=== PATIENT | female | born 1935 | race Caucasian/White ===

== ENCOUNTER 2023-08-16 11:09 | Emergency (ER) | payer OTHER, SELFPAY ==
[2023-08-16 11:10] VITALS: BP 152/79
--- NOTE | 2023-08-16 11:43 | ED.GENMED ---
History of Present Illness
General
Chief Complaint: Fatigue
Source: patient and spouse
Exam Limitations: none
Time Seen by Provider: 08/16/23 11:28
Nursing documentation reviewed up to this point in time: agreed with
Travel History
Have you had any contact with someone who has COVID-19?: No
Do you have any symptoms of coronavirus? Fever > 100 degrees, chills, cough, shortness of breath, sore throat, loss of taste or smell, muscle aches, or headache?: No
History of Present Illness
History of Present Illness:
87-year-old female with history as documented presents to the emergency room for evaluation of fatigue. Patient reports that she has had increasing fatigue and generalized weakness over the past week or so�she says she first seem to notice it when
she was working in the garden a week ago he says that she had a minor fall onto her bottom and was too weak to stand up. She did not hit her head or sustain any serious injuries. She says she has been much more tired than usual and has
been sleeping more. She says she has had some increased shortness of breath. She has not had any infectious symptoms such as cough, runny nose, sore throat, nausea/vomiting/diarrhea. She has not had any dysuria, hematuria, change in urinary
frequency. She denies any chest or abdominal pain. She denies any back or flank pain. She has not had any headache or neck pain. She has not noticed any blood in her stools. She does report that she wishes to be tested for Lyme disease as she
says she works in the garden and has many cats and although she does not recall any specific tick bites she has taken ticks off of her in the past.
Past History
Past History
ED Past Medical History: GERD and Other (Diverticulitis)
ED Past Surgical History: Cholecystectomy
Social History
Tobacco: Non-smoker
Personal:
Living: with family
Employment: Retired
Review of Systems
Review of Systems
All Other Systems: ROS reviewed and negative except as documented in HPI and ROS
Constitutional: Reports fatigue; Denies fever or chills
EENT: Denies sore throat or runny nose
Respiratory: Reports trouble breathing; Denies cough
Cardiac: Denies chest pain or palpitations
ABD/GI: Denies abdominal pain, nausea, vomiting, diarrhea, bloody stools or black stools
: Denies dysuria, frequency or flank pain
Musculoskeletal: Denies neck pain or back pain
Neurological: Denies headache, weakness or numbness
Phy Exam
Physical Exam
Physical Exam:
General: Awake, alert, oriented x3; no acute distress
Head: Normocephalic, atraumatic
Eyes: Conjunctiva normal, EOMI, pupils equal round and reactive to light bilaterally
Throat: Airway intact, handling secretions
Neck: Trachea midline, supple without meningismus, no cervical spine tenderness
Back: No signs of trauma to the back or flank, no tenderness in thoracic or lumbar spine
Lungs: Clear to auscultation bilaterally, no wheezing, rales, rhonchi
Heart: Regular rate and rhythm, no murmurs, gallops, or rubs
Abd: Soft, non distended, nontender
Neuro: Cranial nerves grossly intact, speech fluid
Skin: Somewhat pale, no rash
Extremities: No edema in extremities, equal pulses in all extremities
Scores
Heart Failure Risk
Heart Failure Risk Score: Not Applicable
Heart Score for Chest Pain Patients
STEMI patient?: Not applicable
Withdrawal Assessment of Alcohol
Withdrawal Assessment Completed?: Not applicable
Course
Orders/Labs/Results
Orders:
Orders
08/16/23 11:30
Electrocardiogram (*1) Urgent
Reason for Study: Fatigue / Weakness
EKG- Treatment ONCE
08/16/23 11:48
CR Chest - 2 Views Urgent
Comment:
Reason For Exam: weakness, sob
08/16/23 12:03
COVID-19 Antigen Urgent
Source: Nasal Swab
Complete Blood Count/With Diff Urgent
Comprehensive Metabolic Panel Urgent
Lyme PCR, DNA [S] Urgent
Urinalysis Reflex To Culture Urgent
Date Specimen was Collected: 08/16/23
Time Specimen was Collected: 11:42
Influenza A+B Rapid Molecular Urgent
ADELITA Source: Nasal Swab
Specimen Description:
08/16/23 13:20
Case Management Consult ONCE
Case Management Consult: Discharge Planning
Pt Eval And Treat Urgent
Activity Level: Ambulate
Abnormal Lab Results
08/16/23
12:03
RBC 3.59 L 10^6/uL
(4.20-5.40)
Hgb 11.2 L g/dL
(12.0-16.0)
Hct 33.7 L %
(37.0-47.0)
MCH 31.2 H pg
(27.0-31.0)
Absolute Monos (auto) 0.7 H 10^3/uL
(0.1-0.6)
Monocytes % 9.9 H %
(1.7-9.3)
Glucose 110 H mg/dl
(70-99)
08/16/23 12:03
08/16/23 12:03
Vital Signs
Initial and Last Documented VS:
Initial Vital Signs
Temp Pulse Resp BP Pulse Ox
37.0 C 73 20 152/79 95
08/16/23 11:10 08/16/23 11:10 08/16/23 11:10 08/16/23 11:10 08/16/23 11:10
Last Documented Vital Signs
Temp Pulse Resp BP Pulse Ox
37.0 C 66 12 129/92 96
08/16/23 11:10 08/16/23 12:30 08/16/23 12:30 08/16/23 13:42 08/16/23 13:43
MDM/Problems Addressed
Differential Diagnosis Includes:
Anemia, electrolyte derangement, dehydration, infection including UTI or pneumonia, deconditioning, dysrhythmia, Lyme's disease
MDM/Problems Addressed:
87-year-old female presents for evaluation of progressive fatigue and generalized weakness over the past week plus. No other specific signs or symptoms reported. She is hypertensive but otherwise normal vitals. Physical exam as above. Plan to
place an IV check labs including a CBC and a CMP; will check urinalysis, chest x-ray, viral swabs for basic infectious workup. Check Lyme's test. Will check an EKG. Will monitor closely reassess after the above.
Labs reviewed: CBC shows anemia to 11.2 which is stable for the patient. CMP shows no electrolyte derangements or other acute abnormalities. Urinalysis is negative for infection. Viral swabs have been negative. Chest x-ray shows no pneumonia on
my independent review. Patient's vitals have been stable. Given her report of significant weakness we will have physical therapy assess patient prior to disposition�there is no clear medical indication for admission but concerned about her
functional status given recent fall.
Patient evaluated by physical therapy recommended home therapy as needed. Case management evaluated patient but they declined physical therapy. Had a long discussion with the patient�no clearly identifiable cause for her generalized weakness and
fatigue. seems to think that this could be long COVID as they both had COVID in the past and he has had similar severe fatigue. Lyme studies are pending. I offered admission but patient and feel comfortable going home at this
point in time they will follow-up with her primary doctor next week and will reassess need for therapy or further testing. I think this is a reasonable plan. We spoke about return precautions and all questions were answered.
Acute Exacerbation and/or Progression of Chronic Illness:
Acutely hypertensive with no signs or symptoms of hypertensive emergency�no indication for emergent antihypertensive treatment at present
Acute Exacerbation and/or Progression of Chronic Illness: HTN
*Radiology
Radiology exam reviewed: radiology read reviewed
*Pulse Oximetry
Patient hypoxic: no
*EKG
Interpreted by ED Provider?: Yes
Heart Rate: 65
Rate: normal
Rhythm: sinus
[employer]: left axis deviation
Interval: normal interval
QRS Pattern: normal QRS
Ischemia: no ischemia
*Critical Care Note
Total Time (30-74mins, 75-104mins- exclusive of procedures): Not Applicable
Data Reviewed
Review of Other/Old Records Reveals: Labs and Records
Source: patient, records and spouse
Patient Management
Social determinants of health affecting care: Living situation and Strong social support
Discussion with other providers: Other (Discussed with physical therapy, case assembler)
Escalation/DeEscalation of care consider admission/obs:
Offered admission�patient and prefer discharge with PCP follow-up
ED Attending Note
-
Portions of this chart may have been created with voice recognition software.� Occasional wrong word or��sound alike� substitutions may have occurred due to the inherent limitations of voice recognition software.
Discharge Plan
Departure
Patient Disposition: Home (Routine Discharge)
Date of Disposition: 08/16/23
Time of Disposition: 14:51
Patient with high blood pressure during this ER visit?: Yes
Discharge Problem:
Generalized weakness
Instructions: Generalized Weakness (DC)
Prescriptions:
No Action
rabeprazole [AcipHex] 20 MG tablet,delayed release (DR/EC)
20 mg PO DAILY
Myrbetriq 50 MG tablet extended release 24 hr
50 mg PO DAILY
therapeutic multivitamin Tablet
1 tab PO DAILY
bismuth subsalicylate [Pepto-Bismol] 262 mg Tablet,Chewable
2 tab PO Q4HPRN PRN (Reason: gerd)
Laxative (bisacodyl) 5 mg Tablet
5 mg PO HSPRN PRN (Reason: constipation)
duloxetine [Cymbalta] 30 mg Capsule,Delayed Release(Dr/Ec)
30 mg PO QPM
solifenacin [Vesicare] 5 mg Tablet
5 mg PO DAILY
Hair, Skin and Nails Advanced 3.3 mg iron-25 mcg Tablet
1 tab PO DAILY
docusate sodium 100 MG capsule
100 mg PO HS
pantoprazole [Protonix] [address] for susp in packet
40 mg PO DAILY Qty: 30 0RF
Referrals:
Macho Howe MD [Family Provider] - Follow up in 2-3 days
Activity Restrictions/Additional Instructions:
Thank you for visiting the Emergency Department at [facility].
1. Please schedule a follow up appointment as directed. Call first thing tomorrow morning to make an appointment.
2. If indicated, please take your medications as instructed and indicated on discharge paperwork.
3. If any of your symptoms do not improve, or persist, or become more severe within 6-12 hours, please return to the emergency department for further care.
4. Please return to the emergency department if you develop a headache, neck pain/stiffness, fever greater than 100.4F, chest pain, shortness of breath, persistent nausea, vomiting, slurred speech, difficulty walking, numbness/tingling, weakness,
signs of infection or any other symptoms that are worrisome to you.
Please call [phone] if you have any questions.
Interventions
Interventions:
*Risk Screen - Suicide Last Done: 08/16/23 11:10
*General Assessment Last Done: 08/16/23 11:10
*Neglect/Abuse Screening Last Done: 08/16/23 11:10
ED- Fall Risk Assessment Last Done: 08/16/23 12:22
*ED COVID-19 Vaccine History Last Done: 08/16/23 11:46
Discharge Date and Time
Print Language: PORTUGUESE
[2023-08-16 11:46] VITALS: BMI 28.7
[2023-08-16 12:20] VITALS: BP 98/55
[2023-08-16 12:28] LABS: % Basophils 0.4 % (0-2); % Eosinophils 2.1 % (0-6); % Immature Granulocytes 0.3 % (0-0.5); % Lymphocytes 35.9 % (20.5-51.1); % Monocytes 9.9 % (1.7-9.3); % Neutrophils 51.4 % (42.2-75.2); Absolute Eosinophils 0.2 10^3/uL (0-0.7); Absolute Lymphocytes 2.5 10^3/uL (1.2-3.4); Absolute Monocytes 0.7 10^3/uL (0.1-0.6); Absolute Neutrophils 3.6 10^3/uL (1.4-6.5); Hematocrit 33.7 % (37.0-47.0); Hemoglobin 11.2 g/dL (12.0-16.0); Mean Corp Hgb Conc. 33.2 g/dL (33.0-37.0); Mean Corpuscular Hgb 31.2 pg (27.0-31.0); Mean Corpuscular Volume 93.9 fL (81.0-99.0); Mean Platelet Volume 9.9 fL (7.4-10.4); Nucleated Red Blood Cells % 0 %; Platelet Count 222 10^3/uL (130-400); Red Blood Cell Count 3.59 10^6/uL (4.20-5.40); Red Cell Dist. Width 12.7 % (11.5-14.5); White Blood Cell Count 7.1 10^3/uL (4.8-10.8)
[2023-08-16 12:45] LABS: ALT (SGPT) 18 U/L (0-35); AST (SGOT) 30 U/L (14-36); Albumin 3.9 g/dl (3.5-5.0); Alkaline Phosphatase 66 U/L (38-126); Blood Urea Nitrogen 14 mg/dl (7-17); Calcium 9.5 mg/dl (8.4-10.2); Carbon Dioxide 29 mmol/L (22-30); Chloride 107 mmol/L (98-107); Estimated Creatinine Clearance 42 ml/min; Glucose 110 mg/dl (70-99); Potassium 4.2 mmol/L (3.5-5.1); Sodium 141 mmol/L (135-145); Total Bilirubin 0.7 mg/dl (0.2-1.3); Total Protein 6.5 g/dl (6.3-8.2); eGFR > 60.00
[2023-08-16 12:52] LABS: COVID-19 Antigen Negative (Negative)
[2023-08-16 12:56] LABS: Urine Albumin Negative (Neg - Trace); Urine Bilirubin Negative (Negative); Urine Character Clear (Clear); Urine Color Yellow; Urine Glucose Negative (Negative); Urine Ketone Negative (Negative); Urine Leukocyte Negative (Negative); Urine Nitrite Negative (Negative); Urine Occult Blood Negative (Negative); Urine Specific Gravity 1.015 (<1.030); Urine Urobilinogen Negative (Neg - 1+)
[2023-08-16 13:42] VITALS: BP 129/92
[2023-08-16 13:50] VITALS: BP 126/91
[2023-08-16 14:00] VITALS: BP 126/105
[2023-08-16 14:06] VITALS: BP 129/92; O2SAT 97
--- NOTE | 2023-08-16 14:28 | CM ---
Patient seen bedside with , initial assessment completed. Patient resides with her spouse in a two story home, elevator in the home. Patient does not use DME, does not have any SNF history. Patient reports history with [facility] VN. Patient
confirms PCP Macho Hwoe, pharmacy [facility], confirms prescription coverage. Patient reports she has been feeling very fatigued which is not like her. CM discussed referral for VN services, patient declining at this time. Patient reports she
knows the exercises for therapy and is able to ambulate independently but has just been feeling fatigued. CM explained to patient and that if patient discharges from Hospital and wishes to have VN services, patient can contact PCP. Patient
and in agreement with this and at this time would like to hold off on VN referral. Patients inquiring about blood work results. CM updated patients nurse. CM will continue to follow for discharge planning needs.
Plan; home no needs, patient declining VN at this time.
[2023-08-18 08:30] LABS: Lyme Disease DNA by PCR Not Detected; Lyme Source Serum
== END 2023-08-16 15:12 | disposition home or self-care (01) ==
LOC: EMR 11:09
PROVIDERS: EMERGENCY PHYSICIAN Emergency Medicine; FAMILY PHYSICIAN Family Medicine
DX: R53.1 Weakness (principal); R53.83 Other fatigue; R06.02 Shortness of breath; W19.XXXA Unspecified fall, initial encounter; Z11.52 Encounter for screening for COVID-19; R03.0 Elevated blood-pressure reading, without diagnosis of hypertension; K21.9 Gastro-esophageal reflux disease without esophagitis; K57.92 Diverticulitis of intestine, part unspecified, without perforation or abscess without bleeding; G62.9 Polyneuropathy, unspecified; K57.90 Diverticulosis of intestine, part unspecified, without perforation or abscess without bleeding; M19.90 Unspecified osteoarthritis, unspecified site; D64.9 Anemia, unspecified; Z90.49 Acquired absence of other specified parts of digestive tract; Z96.651 Presence of right artificial knee joint
CPT/HCPCS: 99283; 71046; 80053; 81003; 85025; 87476; 87502; 87811; 93005

== ENCOUNTER → 2023-10-02 12:01 | Outpatient (REF) | payer OTHER, SELFPAY | LOC: RAD 12:01 | PROVIDERS: ATTENDING PHYSICIAN Family Medicine | DX: M79.672 Pain in left foot (principal); M25.572 Pain in left ankle and joints of left foot | CPT/HCPCS: 73610; 73630 ==

== ENCOUNTER → 2023-10-12 11:47 | Emergency (ER) | payer OTHER, SELFPAY ==
[2023-10-12 11:51] VITALS: BP 166/86
--- NOTE | 2023-10-12 12:02 | ED.GENMED ---
History of Present Illness
General
Chief Complaint: Headache
Time Seen by Provider: 10/12/23 12:02
History of Present Illness
History of Present Illness:
HPI: The patient presents with a headache. The location of the pain is primarily in the back of the head down the right side of the head and to the back of the right ear. She has no temporal pain. She reports some pain with moving the right upper
extremity but denies any true weakness.
EXAM:
GENERAL: Well appearing but appears somewhat uncomfortable
HEENT: Moist oral mucosa
CARDIOVASCULAR: No murmurs, normal heart rate, regular rhythm, No chest wall tenderness
PULMONARY: No respiratory distress, breath sounds are clear and equal
ABDOMEN: Soft with no peritoneal signs, no tenderness
NEUROLOGIC: Excellent strength all extremities, no coordination deficits
PSYCHIATRIC: Appropriate mental status, normal insight and judgement
EXTREMITIES: Nontender, no edema, she has decreased active range of motion at the right shoulder due to pain
SKIN: No rash, no lesions, I see no evidence of shingles on physical examination of the scalp
TIME OF INITIAL ENCOUNTER: 12:30 PM
NUMBER AND COMPLEXITY OF PROBLEMS ADDRESSED AT THE ENCOUNTER
� Chronic conditions affecting care: Diverticular disease, GERD, hiatal hernia, has had shingles, anxiety
� Acute Exacerbation and/or Progression of Chronic Illness: This is an acute problem
� Differential Diagnosis includes: Tension headache, hypertensive headache, temporal arteritis very unlikely given the location of the symptoms
AMOUNT AND/OR COMPLEXITY OF DATA TO BE REVIEWED AND ANALYZED
� I performed an independent evaluation of and my interpretation is:
EKG:
CT: CT of the brain personally reviewed which shows no acute abnormality
X-rays:
Laboratory Studies: Sed rate 15, CBC unremarkable
Other:
� Review of other/old records: The patient was admitted here in July 2022 with dyspepsia likely related to a large paraesophageal hiatal hernia (at that time she was heme positive stool had upper endoscopy which was unrevealing
and was discharged on Protonix)
� Clinical information was obtained by an independent historian: None needed
� Prescriptions/Medications Considered but not given:
� Further testing considered but not performed:
RISK OF COMPLICATIONS AND/OR MORBIDITY OR MORTALITY OF PATIENT MANAGEMENT
� Social determinants of health affecting care: Lives at home.
� Discussion with other providers:
� Escalation of care including admission/observation vs risk of discharge considered: Given patient's age, sed rate was obtained which was normal. Therefore extremely low suspicion for temporal arteritis. Tylenol 1000 mg was
given for pain; of note she did have Tylenol 500 mg earlier today. On reassessment at 1:35 PM, pain persist but overall appears somewhat improved. Will add Lyme testing as patient did voice some concern [place]
Past History
Past History
ED Past Medical History: GERD and Other (Diverticulitis)
ED Past Surgical History: Cholecystectomy
Social History
Tobacco: Non-smoker
Personal:
Living: with family
Employment: Retired
Phy Exam
Physical Exam
Physical Exam:
See HPI
Course
Orders/Labs/Results
Orders:
Orders
10/12/23 11:[address] [CT Head W/o Iv Contrast] Urgent
Comment:
Reason For Exam: headache, neck pain
10/12/23 12:23
Acetaminophen [Tylenol] 1,000 mg PO NOW STA
10/12/23 12:55
CBC/With ESR Urgent
Abnormal Lab Results
10/12/23
12:55
RBC 3.87 L 10^6/uL
(4.20-5.40)
Hct 36.8 L %
(37.0-47.0)
MCH 31.5 H pg
(27.0-31.0)
Absolute Monos (auto) 0.9 H 10^3/uL
(0.1-0.6)
Monocytes % 10.6 H %
(1.7-9.3)
10/12/23 12:55
Vital Signs
Initial and Last Documented VS:
Initial Vital Signs
Temp Pulse Resp BP Pulse Ox
98.2 F 78 18 166/86 98
10/12/23 11:51 10/12/23 11:51 10/12/23 11:51 10/12/23 11:51 10/12/23 11:51
Last Documented Vital Signs
Temp Pulse Resp BP Pulse Ox
98.2 F 78 18 166/86 98
10/12/23 11:51 10/12/23 11:51 10/12/23 11:51 10/12/23 11:51 10/12/23 11:51
*Critical Care Note
Total Time (30-74mins, 75-104mins- exclusive of procedures): Not Applicable
ED Attending Note
-
Portions of this chart may have been created with voice recognition software.� Occasional wrong word or��sound alike� substitutions may have occurred due to the inherent limitations of voice recognition software.
Discharge Plan
Departure
Prescriptions:
No Action
rabeprazole [AcipHex] 20 MG tablet,delayed release (DR/EC)
20 mg PO DAILY
Myrbetriq 50 MG tablet extended release 24 hr
50 mg PO DAILY
therapeutic multivitamin Tablet
1 tab PO DAILY
bismuth subsalicylate [Pepto-Bismol] 262 mg Tablet,Chewable
2 tab PO Q4HPRN PRN (Reason: gerd)
Laxative (bisacodyl) 5 mg Tablet
5 mg PO HSPRN PRN (Reason: constipation)
duloxetine [Cymbalta] 30 mg Capsule,Delayed Release(Dr/Ec)
30 mg PO QPM
solifenacin [Vesicare] 5 mg Tablet
5 mg PO DAILY
Hair, Skin and Nails Advanced 3.3 mg iron-25 mcg Tablet
1 tab PO DAILY
docusate sodium 100 MG capsule
100 mg PO HS
pantoprazole [Protonix] [address] for susp in packet
40 mg PO DAILY Qty: 30 0RF
Interventions
Interventions:
*Risk Screen - Suicide Last Done: 10/12/23 11:51
*General Assessment Last Done: 10/12/23 11:51
*Neglect/Abuse Screening Last Done: 10/12/23 11:51
ED- Fall Risk Assessment Last Done: 10/12/23 12:40
*ED COVID-19 Vaccine History Last Done: 10/12/23 12:40
ED- Neurological Assessment Last Done: 10/12/23 12:40
Discharge Date and Time
Print Language: CYMRO
[2023-10-12] MEDS: TYLENOL 1000 MG PO (12:35)
[2023-10-12 12:40] VITALS: BMI 26.1
[2023-10-12 13:12] LABS: % Basophils 0.4 % (0-2); % Eosinophils 2.7 % (0-6); % Immature Granulocytes 0.2 % (0-0.5); % Lymphocytes 31.9 % (20.5-51.1); % Monocytes 10.6 % (1.7-9.3); % Neutrophils 54.2 % (42.2-75.2); Absolute Eosinophils 0.2 10^3/uL (0-0.7); Absolute Lymphocytes 2.6 10^3/uL (1.2-3.4); Absolute Monocytes 0.9 10^3/uL (0.1-0.6); Absolute Neutrophils 4.5 10^3/uL (1.4-6.5); Hematocrit 36.8 % (37.0-47.0); Hemoglobin 12.2 g/dL (12.0-16.0); Mean Corp Hgb Conc. 33.2 g/dL (33.0-37.0); Mean Corpuscular Hgb 31.5 pg (27.0-31.0); Mean Corpuscular Volume 95.1 fL (81.0-99.0); Mean Platelet Volume 9.9 fL (7.4-10.4); Nucleated Red Blood Cells % 0 %; Platelet Count 236 10^3/uL (130-400); Red Blood Cell Count 3.87 10^6/uL (4.20-5.40); Red Cell Dist. Width 12.5 % (11.5-14.5); White Blood Cell Count 8.2 10^3/uL (4.8-10.8)
[2023-10-12 13:26] LABS: Erythrocyte Sed Rate 15 mm/hour (0-20)
[2023-10-16 14:17] LABS: Lyme Antibody Screen, EIA Presump. Positive (Negative)
== END | disposition home or self-care (01) ==
LOC: EMR 11:47
PROVIDERS: EMERGENCY PHYSICIAN Emergency Medicine; FAMILY PHYSICIAN Family Medicine
DX: R51.9 Headache, unspecified (principal); M54.2 Cervicalgia; K21.9 Gastro-esophageal reflux disease without esophagitis; K57.92 Diverticulitis of intestine, part unspecified, without perforation or abscess without bleeding; K44.9 Diaphragmatic hernia without obstruction or gangrene; B02.9 Zoster without complications; F41.9 Anxiety disorder, unspecified; Z90.49 Acquired absence of other specified parts of digestive tract
CPT/HCPCS: 99284; 70450; 85025; 85652; 86617; 86618

== ENCOUNTER 2023-11-01 11:25 | Emergency (ER) | payer OTHER, SELFPAY ==
[2023-11-01] VITALS (7 sets, daily range): BP systolic 91–141; BP diastolic 36–75; BMI 28.7
[2023-11-01 11:49] LABS: % Basophils 0.3 % (0-2); % Eosinophils 1.4 % (0-6); % Immature Granulocytes 0.3 % (0-0.5); % Lymphocytes 28.9 % (20.5-51.1); % Monocytes 11.1 % (1.7-9.3); Absolute Eosinophils 0.2 10^3/uL (0-0.7); Absolute Lymphocytes 3.2 10^3/uL (1.2-3.4); Absolute Monocytes 1.2 10^3/uL (0.1-0.6); Absolute Neutrophils 6.4 10^3/uL (1.4-6.5); Hematocrit 36.4 % (37.0-47.0); Hemoglobin 12.3 g/dL (12.0-16.0); Mean Corp Hgb Conc. 33.8 g/dL (33.0-37.0); Mean Corpuscular Hgb 31.2 pg (27.0-31.0); Mean Corpuscular Volume 92.4 fL (81.0-99.0); Mean Platelet Volume 9.2 fL (7.4-10.4); Nucleated Red Blood Cells % 0 %; Platelet Count 310 10^3/uL (130-400); Red Blood Cell Count 3.94 10^6/uL (4.20-5.40); Red Cell Dist. Width 12.2 % (11.5-14.5)
[2023-11-01 12:01] LABS: ALT (SGPT) 18 U/L (0-35); AST (SGOT) 29 U/L (14-36); Albumin 4.3 g/dl (3.5-5.0); Alkaline Phosphatase 75 U/L (38-126); Blood Urea Nitrogen 13 mg/dl (7-17); Calcium 9.5 mg/dl (8.4-10.2); Carbon Dioxide 27 mmol/L (22-30); Chloride 101 mmol/L (98-107); Glucose 126 mg/dl (70-99); Potassium 3.9 mmol/L (3.5-5.1); Sodium 136 mmol/L (135-145); eGFR > 60.00
--- NOTE | 2023-11-01 13:30 | EDRN ---
Zach ROBERTSON in room w/ pt at this time.
--- NOTE | 2023-11-01 13:37 | ED.GENMED ---
History of Present Illness
General
Chief Complaint: Generalized Pain
Source: patient and spouse
Exam Limitations: none
Time Seen by Provider: 11/01/23 13:15
Nursing documentation reviewed up to this point in time: agreed with
History of Present Illness
History of Present Illness:
Patient to ED with complaint of headache, sharp pain to righ side of face and neck, chest pain. State pain occurs overnight. Resolves without treatment. She was seen here 2 weeks ago for same. No concerning findings at that time. Brought back
to ED by spouse for eval.
Past History
Past History
ED Past Medical History: GERD and Other (Diverticulitis)
ED Past Surgical History: Cholecystectomy
Social History
Tobacco: Non-smoker
Personal:
Living: with family
Employment: Retired
Review of Systems
Review of Systems
Allergies reviewed?: Yes
All Other Systems: ROS reviewed and negative except as documented in HPI and ROS
Constitutional: Reports fatigue and sleep disturbance (sleeping during day, up at night.)
EENT: Reports no symptoms
Respiratory: Reports no symptoms
Cardiac: Reports chest pain (chest pain at night)
ABD/GI: Reports no symptoms
: Reports no symptoms
Musculoskeletal: Reports no symptoms
Skin: Reports no symptoms
Neurological: Reports headache and other (sharp pain to top of scalp, right side of face and neck)
Psychiatric: Reports anxiety
Phy Exam
General Physical Exam
General Presentation: well appearing and no apparent distress
General age: appears stated age
General Skin: warm and dry
General Habitus: normal
General Mental: alert
Cardiovascular Exam
Cardiovascular Exam: regular rate/rhythm and no edema
Pulmonary Exam
Pulmonary Exam: lungs clear and no respiratory distress
Gastrointestinal Exam
Gastrointestinal Exam: normal bowel sounds, non tender, soft, no organomegaly and non distended
Neurological Exam
Neurological Exam: alert, oriented x3, CN II-XII intact, no motor deficits, no sensory deficits and speech normal
Musculoskeletal Exam
Musculoskeletal Exam: full ROM and neuro vasc intact
Skin Exam
Skin Exam: normal color, warm/dry and no rash
Psychiatric Exam
Psychiatric Exam: normal mood/affect
Course
Orders/Labs/Results
Orders:
Orders
11/01/23 11:38
C-Reactive Protein Urgent
Comment: ESR & CRP ADDED ON BY FLOOR 1:30PM 11-01-23
CBC/With Diff [Complete Blood Count/With Diff] Urgent
CMP [Comprehensive Metabolic Panel] Urgent
Erythrocyte Sed Rate Urgent
11/01/23 13:29
Electrocardiogram (*1) Urgent
Reason for Study: Chest Pain
EKG- Treatment ONCE
11/01/23 13:32
Add On- LAB Urgent
Tests Added?: Sed rate, CRP
11/01/23 14:36
Troponin I Urgent
11/01/23 15:29
Urinalysis Reflex To Culture Urgent
Date Specimen was Collected: 11/01/23
Time Specimen was Collected: 15:28
Urine Microscopic Reflex Cult Urgent
Urine Culture Urgent
ADELITA Source: U
Specimen Description:
Date Specimen was Collected: 11/01/23
Time Specimen was Collected: 15:28
11/01/23 16:33
Amoxicillin 875 mg/Clav 125 mg [Augmentin 875 mg/125 mg] 1 tablet PO NOW STA
Abnormal Lab Results
11/01/23 11/01/23
11:38 15:29
WBC 11.0 H 10^3/uL
(4.8-10.8)
RBC 3.94 L 10^6/uL
(4.20-5.40)
Hct 36.4 L %
(37.0-47.0)
MCH 31.2 H pg
(27.0-31.0)
Absolute Monos (auto) 1.2 H 10^3/uL
(0.1-0.6)
Monocytes % 11.1 H %
(1.7-9.3)
Glucose 126 H mg/dl
(70-99)
Leukocyte Esterase Rfl Trace A
(Negative)
Urine WBC (Reflex) 16-20 A /HPF
(0-5)
Urine Bacteria (Reflex) Few A
(Negative)
11/01/23 11:38
11/01/23 11:38
Vital Signs
Initial and Last Documented VS:
Initial Vital Signs
Temp Pulse Resp BP Pulse Ox
98.3 F 91 19 102/68 94
11/01/23 11:31 11/01/23 11:31 11/01/23 11:31 11/01/23 11:31 11/01/23 11:31
Last Documented Vital Signs
Temp Pulse Resp BP Pulse Ox
98.3 F 80 22 113/75 95
11/01/23 11:31 11/01/23 16:45 11/01/23 16:45 11/01/23 16:00 11/01/23 16:30
*Radiology
Radiology exam reviewed: radiology read reviewed
*Pulse Oximetry
Patient hypoxic: no
*Critical Care Note
Total Time (30-74mins, 75-104mins- exclusive of procedures): Not Applicable
Update Note
Update Note:
Patient remains awake and alert, asymptomatic while in ED. Discussed lab findings with patient and spouse. UA concerning for UTI. Antibiotic started in dept. SHe is discharged home, will follow up wtih PCP in AM
ED Attending Note
-
Portions of this chart may have been created with voice recognition software.� Occasional wrong word or��sound alike� substitutions may have occurred due to the inherent limitations of voice recognition software.
Discharge Plan
Departure
Patient Disposition: Home (Routine Discharge)
Date of Disposition: 11/01/23
Time of Disposition: 16:35
Patient with high blood pressure during this ER visit?: No
Condition: Good
Covid-19: Not Applicable
Discharge Problem:
Acute UTI
Instructions: Urinary Tract Infection, Adult ED
Prescriptions:
New
amoxicillin-pot clavulanate 875-125 mg tablet
1 tab PO BID Qty: 10 0RF
No Action
rabeprazole [AcipHex] 20 MG tablet,delayed release (DR/EC)
20 mg PO DAILY
Myrbetriq 50 MG tablet extended release 24 hr
50 mg PO DAILY
therapeutic multivitamin Tablet
1 tab PO DAILY
bismuth subsalicylate [Pepto-Bismol] 262 mg Tablet,Chewable
2 tab PO Q4HPRN PRN (Reason: gerd)
Laxative (bisacodyl) 5 mg Tablet
5 mg PO HSPRN PRN (Reason: constipation)
duloxetine [Cymbalta] 30 mg Capsule,Delayed Release(Dr/Ec)
30 mg PO QPM
solifenacin [Vesicare] 5 mg Tablet
5 mg PO DAILY
Hair, Skin and Nails Advanced 3.3 mg iron-25 mcg Tablet
1 tab PO DAILY
docusate sodium 100 MG capsule
100 mg PO HS
pantoprazole [Protonix] [address] for susp in packet
40 mg PO DAILY Qty: 30 0RF
Referrals:
Macho Howe MD [Family Provider] - Follow up in 2-3 days
Interventions
Interventions:
*Risk Screen - Suicide Last Done: 11/01/23 11:31
*General Assessment Last Done: 11/01/23 11:31
*Neglect/Abuse Screening Last Done: 11/01/23 11:31
ED- Fall Risk Assessment Last Done: 11/01/23 12:30
*ED COVID-19 Vaccine History Last Done: 11/01/23 11:31
*Nursing Disposition Last Done: 11/01/23 17:04
Discharge Date and Time
Discharge Date/Time: 11/01/23 17:05
Print Language: CAMEROONIAN
[2023-11-01 14:35] LABS: Erythrocyte Sed Rate 16 mm/hour (0-20)
--- NOTE | 2023-11-01 14:39 | EDRN ---
troponin was called by lab as hemolyzed and just redrawn and sent at this time.
[2023-11-01 15:11] LABS: Troponin I < 0.012 ng/ml
--- NOTE | 2023-11-01 15:32 | EDRN ---
Pt was OOB to BR w/ urine spec obtained and sent.
--- NOTE | 2023-11-01 15:36 | EDRN ---
Zach ROBERTSON in room w/ pt and spouse.
[2023-11-01 15:37] LABS: Urine Albumin Negative (Neg - Trace); Urine Bilirubin Negative (Negative); Urine Character Clear (Clear); Urine Color Yellow; Urine Glucose Negative (Negative); Urine Ketone Negative (Negative); Urine Leukocyte Trace (Negative); Urine Nitrite Negative (Negative); Urine Occult Blood Negative (Negative); Urine Specific Gravity 1.015 (<1.030); Urine Urobilinogen Negative (Neg - 1+)
[2023-11-01 15:47] LABS: Urine Bacteria Few (Negative); Urine Red Blood Cell 0-2 /HPF (0-2); Urine Squamous Cell 0-2 /LPF (Few); Urine Urothelial Cell 0-2 /LPF (FEW); Urine White Cell 16-20 /HPF (0-5)
--- NOTE | 2023-11-01 16:38 | EDRN ---
Zach ROBERTSON in room w/ pt and spouse at this time.
[2023-11-01] MEDS: AUGMENTIN 875 MG/125 MG 1 TABLET PO (16:43)
== END 2023-11-01 17:05 | disposition home or self-care (01) ==
LOC: EMR 11:25
PROVIDERS: Emergency Medicine; Nurse Practitioner; EMERGENCY PHYSICIAN Student in an Organized Health Care Education/Training Program; FAMILY PHYSICIAN Family Medicine
DX: N39.0 Urinary tract infection, site not specified (principal); K21.9 Gastro-esophageal reflux disease without esophagitis; Z90.49 Acquired absence of other specified parts of digestive tract
CPT/HCPCS: 99283; 80053; 81003; 81015; 84484; 85025; 85652; 86140; 87086; 93005

== ENCOUNTER → 2024-06-14 10:39 | Outpatient (REF) | payer OTHER, SELFPAY | LOC: HWRAD 10:39 | PROVIDERS: ATTENDING PHYSICIAN Family Medicine | DX: R10.30 Lower abdominal pain, unspecified (principal) | CPT/HCPCS: 76770 ==